=== PATIENT | male | born 2000 | race Caucasian/White ===

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

== ENCOUNTER 2021-02-06 10:43 | Emergency (ER) | payer OTHER ==
[~2021-02-06] VITALS: Ht 177.8 cm; Wt 65.9 kg
--- NOTE | 2021-02-06 12:17 | REP ---
INDICATION: pain in calf, r/o clot COMPARISON: 04/11/2020 TECHNIQUE: [place] scale and color Doppler evaluation using linear high frequency transducer. FINDINGS: Ultrasound examination of the right lower extremity deep venous structures from the common femoral vein through the calf/ankle to include the peroneal, and tibial veins demonstrates normal compressibility flow and wave patterns in response to respiration and augmentation. There is no evidence for deep venous thrombosis. Contralateral CFV is patent and normal. IMPRESSION: No evidence for deep venous thrombosis. <Electronically signed by Oswald Stovall > 02/06/21 [id number]
[2021-02-06 12:53] LABS: CK-MB VALUE MASS < 1.0 NG/ML (<3.6); CPK CREATINE PHOSPHOKINASE 321 U/L (39-308); MAGNESIUM LEVEL 2.1 MG/DL (1.4-2.0); MB/CK RELATIVE INDEX 0.31 (< OR =4)
[2021-02-06 13:10] VITALS: BP 123/63
== END 2021-02-06 13:19 | disposition home or self-care (01) ==
LOC: M ED 10:43
DX: M62.838 Other muscle spasm (principal)

== ENCOUNTER 2022-01-13 21:08 | Emergency (ER) | payer OTHER ==
[~2022-01-13] VITALS: Ht 177.8 cm; Wt 65.9 kg
[2022-01-14 05:23] VITALS: BP 122/59
== END 2022-01-14 05:26 | disposition left against medical advice (07) ==
LOC: M ED 21:08
DX: Z53.21 Procedure and treatment not carried out due to patient leaving prior to being seen by health care provider (principal)

== ENCOUNTER 2022-03-16 19:56 | Inpatient (IN) | payer OTHER ==
[~2022-03-16] VITALS: Ht 170.2 cm; Wt 65.9 kg
[2022-03-16 20:35] LABS: BASO # 0.1 10^3/uL (0.0-0.2); BASO % 0.7 % (0.0-1.0); HEMATOCRIT 45.4 % (42.0-52.0); HEMOGLOBIN 15.2 g/dl (13.5-17.5); LYMPH # 1.4 10^3/uL (1.5-5.0); MEAN CORPUSCULAR HEMOGLOBIN 29.6 pg (27.0-33.0); MEAN CORPUSCULAR HGB CONC 33.5 g/dl (32.0-36.5); MEAN CORPUSCULAR VOLUME 88.5 fl (80.0-96.0); MONO % 5.6 % (2.0-8.0); NEUTROPHILS # 13.8 10^3/uL (1.5-8.5); NEUTROPHILS % 81.6 % (36.0-66.0); PLATELET COUNT, AUTOMATED 232 10^3/uL (150-450); RED BLOOD COUNT 5.13 10^6/uL (4.30-6.10); WHITE BLOOD COUNT 16.9 10^3/uL (4.0-10.0)
[2022-03-16 20:52] LABS: OSMOLALITY SERUM 289 MOSM/KG (275-295)
[2022-03-16] MEDS ORDERED: NS 2,050 ML in IV 1 EA IV ONE (21:15)
[2022-03-16 21:16] LABS: ACETAMINOPHEN LEVEL < 2.0 UG/ML (10.0-30.0); ALBUMIN 4.2 GM/DL (3.2-5.2); ALT/SGPT 15 U/L (12-78); BILIRUBIN,DIRECT < 0.1 MG/DL (0.0-0.2); BILIRUBIN,TOTAL 0.3 MG/DL (0.2-1.0); BLOOD UREA NITROGEN 19 MG/DL (7-18); CALCIUM LEVEL 8.9 MG/DL (8.5-10.1); CARBON DIOXIDE LEVEL 26 MEQ/L (21-32); CHLORIDE LEVEL 104 MEQ/L (98-107); CREATININE FOR GFR 0.94 MG/DL (0.70-1.30); ETHYL ALCOHOL (ETHANOL) < 0.003 % (0.000-0.010); GLUCOSE, FASTING 115 MG/DL (70-100); POTASSIUM SERUM 4.5 MEQ/L (3.5-5.1); SALICYLATE LEVEL < 1.7 MG/DL (5.0-30.0); SODIUM LEVEL 138 MEQ/L (136-145); THYROID STIMULATING HORMONE 0.623 uIU/ML (0.463-3.98); TOTAL PROTEIN 7.1 GM/DL (6.4-8.2)
[2022-03-16 21:17] LABS: AMPHETAMINES LEVEL URINE NEGATIVE (NEGATIVE); BARBITURATES URINE NEGATIVE (NEGATIVE); BENZODIAZEPINES URINE NEGATIVE (NEGATIVE); CANNABINOIDS URINE NEGATIVE (NEGATIVE); COCAINE METABOLITE URINE NEGATIVE (NEGATIVE); METHADONE URINE NEGATIVE (NEGATIVE); OPIATES URINE NEGATIVE (NEGATIVE); PHENCYCLIDINE URINE NEGATIVE (NEGATIVE)
[2022-03-16 21:21] LABS: RSV AMPLIFICATION NEGATIVE (NEGATIVE)
[2022-03-16] MEDS ORDERED: cefTRIAXone SOD 2 GM in D5W MINI-BAG PLUS 50 ML IV ONE (22:20)
[2022-03-16] MEDS ORDERED: dexameTHASONE 20MG/5ML VIAL (J1100 PER 1MG) IV ONE (22:20)
[2022-03-16] MEDS ORDERED: VANCOMYCIN HCL 1,000 MG, VIAL MATE ADAPTER 1 EACH in NS 250 ML IV SCH (22:20)
[2022-03-16] MEDS ORDERED: NS 1,000 ML IV SCH (22:30)
[2022-03-16] MEDS ORDERED: VANCOMYCIN HCL 750 MG, VIAL MATE ADAPTER 1 EACH in D5W 250 ML IV ONE ×6 (23:00)
[2022-03-16] MEDS ORDERED: diazePAM 10MG/2ML SYRINGE (J3360 PER 5MG) IV ONE ×2 (23:30→23:50)
[2022-03-17] VITALS (14 sets, daily range): BP systolic 95–144; BP diastolic 50–77
[2022-03-17] MEDS ORDERED: ACYCLOVIR IV ONE ×2
[2022-03-17] MEDS ORDERED: NS IV ONE ×2
[2022-03-17] MEDS ORDERED: levETIRAcetam INJection 1,000 MG in D5W 100 ML IV ONE (00:35)
[2022-03-17] MEDS ORDERED: NAPR500T6 PO (01:31)
[2022-03-17] MEDS ORDERED: AMOX500C PO (01:31)
[2022-03-17] MEDS ORDERED: HOME MED LIST COMPLETE! XX SCH (01:35)
[2022-03-17] MEDS: NS 1,000 ML IV SCH ×3 (05:43→21:35)
[2022-03-17] MEDS ORDERED: VANCOMYCIN HCL 1,000 MG, VIAL MATE ADAPTER 1 EACH in NS 250 ML IV SCH ×2 (06:00→22:00)
[2022-03-17 07:03] LABS: BASO # 0.1 10^3/uL (0.0-0.2); BASO % 0.4 % (0.0-1.0); HEMATOCRIT 42.3 % (42.0-52.0); HEMOGLOBIN 14.4 g/dl (13.5-17.5); LYMPH # 0.7 10^3/uL (1.5-5.0); LYMPH % 5.5 % (24.0-44.0); MEAN CORPUSCULAR HEMOGLOBIN 30.2 pg (27.0-33.0); MEAN CORPUSCULAR VOLUME 88.7 fl (80.0-96.0); MONO # 0.2 10^3/uL (0.0-0.8); MONO % 1.4 % (2.0-8.0); NEUTROPHILS # 11.8 10^3/uL (1.5-8.5); NEUTROPHILS % 91.2 % (36.0-66.0); PLATELET COUNT, AUTOMATED 216 10^3/uL (150-450); RED BLOOD COUNT 4.77 10^6/uL (4.30-6.10); WHITE BLOOD COUNT 12.9 10^3/uL (4.0-10.0)
[2022-03-17 07:24] LABS: BLOOD UREA NITROGEN 13 MG/DL (7-18); CALCIUM LEVEL 8.7 MG/DL (8.5-10.1); CARBON DIOXIDE LEVEL 25 MEQ/L (21-32); CHLORIDE LEVEL 108 MEQ/L (98-107); CREATININE FOR GFR 0.74 MG/DL (0.70-1.30); GLUCOSE, FASTING 137 MG/DL (70-100); POTASSIUM SERUM 4.3 MEQ/L (3.5-5.1); SODIUM LEVEL 143 MEQ/L (136-145)
[2022-03-17] MEDS: ENOXAPARIN 40MG/0.4ML SYRINGE (J1650 PER 10MG) SC SCH (10:17)
[2022-03-17] MEDS: NS IV SCH ×2 (10:17→17:19)
[2022-03-17] MEDS: ACYCLOVIR IV SCH ×2 (10:17→17:19)
[2022-03-17 11:42] LABS: OSMOLALITY SERUM 289 MOSM/KG (275-295)
[2022-03-17] MEDS ORDERED: dexmedeTOMidine 200 MCG in IV 1 EA IV ONE (15:15)
[2022-03-17] MEDS ORDERED: MIDAZOLAM 5MG/ML 1ML VIAL (J2250 PER 1MG) As Ordered ONE (15:25)
[2022-03-17] MEDS ORDERED: MIDAZOLAM 5MG/ML 1ML VIAL (J2250 PER 1MG) IV STA (15:31)
[2022-03-17] MEDS ORDERED: dexmedeTOMidine 200 MCG in IV 1 EA IV SCH ×2 (15:35→23:25)
[2022-03-17] MEDS ORDERED: DEXMEDETOMIDINE IV ONE (15:50)
[2022-03-17] MEDS: dexmedeTOMidine 200 MCG in IV 1 EA IV SCH ×2 (15:53→17:20)
[2022-03-17] MEDS ORDERED: ETOMIDATE INJ 20MG/10ML VIAL IV STA (15:58)
[2022-03-17] MEDS ORDERED: ROCURONIUM BROMIDE 50 MG/5 ML VIAL IV ONE (16:00)
[2022-03-17] MEDS ORDERED: MIDAZOLAM INJ 2MG/2ML VIAL (J2250 PER 1MG) IV STA (17:12)
[2022-03-17] MEDS ORDERED: PROHANCE 279.3MG/ML 15ML VIAL As Ordered ONE (17:13)
[2022-03-17] MEDS: cefTRIAXone SOD 2 GM in D5W MINI-BAG PLUS 50 ML IV SCH (17:19)
[2022-03-17 20:36] LABS: C REACTIVE PROTEIN QUANTITATIV 2.79 MG/DL (0.00-0.30)
[2022-03-17 21:45] LABS: HIV 1&2 SCREEN CENTAUR NEGATIVE (NEGATIVE)
[2022-03-17] MEDS ORDERED: cefTRIAXone SOD 2 GM in D5W MINI-BAG PLUS 50 ML IV SCH (22:00)
[2022-03-17 22:26] LABS: ERYTHROCYTE SEDIMENTATION RATE 6 mm/hr (0-15)
[2022-03-17] MEDS ORDERED: ETOMIDATE INJ 20MG/10ML VIAL ONE (22:48)
[2022-03-17] MEDS ORDERED: ROCURONIUM BROMIDE 50 MG/5 ML VIAL ONE (22:48)
[2022-03-17] MEDS ORDERED: OLANZapine INTRAMUSCULAR 10MG VIAL IM ONE (23:00)
[2022-03-17] MEDS: MIDAZOLAM INJ 2MG/2ML VIAL (J2250 PER 1MG) IV SCH ×2 (23:48→23:49)
[2022-03-18] VITALS (26 sets, daily range): BP systolic 110–143; BP diastolic 53–76
[2022-03-18] MEDS: DOXYCYCLINE HYCLATE 100 MG in D5W MINI-BAG PLUS 100 ML IV SCH ×3 (00:12→21:51)
[2022-03-18] MEDS ORDERED: MIDAZOLAM INJ 2MG/2ML VIAL (J2250 PER 1MG) IV STA (00:36)
[2022-03-18] MEDS ORDERED: MIDAZOLAM INJ 2MG/2ML VIAL (J2250 PER 1MG) IV PRN (00:45)
[2022-03-18] MEDS ORDERED: PROPOFOL 1,000 MG/100 ML VIAL As Ordered ONE (01:37)
[2022-03-18] MEDS: NS IV SCH ×3 (03:02→17:35)
[2022-03-18] MEDS: ACYCLOVIR IV SCH ×3 (03:02→17:35)
[2022-03-18] MEDS: propofoL 1,000 MG in IV 1 EA IV SCH ×5 (03:06→23:46)
[2022-03-18] MEDS: cefTRIAXone SOD 2 GM in D5W MINI-BAG PLUS 50 ML IV SCH ×2 (04:50→16:59)
[2022-03-18 06:32] LABS: BLOOD UREA NITROGEN 16 MG/DL (7-18); CARBON DIOXIDE LEVEL 26 MEQ/L (21-32); CHLORIDE LEVEL 110 MEQ/L (98-107); CREATININE FOR GFR 0.73 MG/DL (0.70-1.30); GLUCOSE, FASTING 121 MG/DL (70-100); SODIUM LEVEL 145 MEQ/L (136-145)
[2022-03-18] MEDS: MIDAZOLAM INJ 2MG/2ML VIAL (J2250 PER 1MG) IV PRN ×3 (07:44→18:33)
[2022-03-18 08:42] LABS: ABG BASE EXCESS 2.4 (-2.0-2.0); ABG HCO3 25.1 MEQ/L (22.0-26.0); ABG O2 SATURATION 99.4 % (95.0-99.0); ABG PARTIAL PRESSURE CO2 32.8 mmHg (35.0-45.0); ABG PARTIAL PRESSURE O2 265.1 mmHg (75.0-100.0); ABG STANDARD HCO3 26.7 MEQ/L (22.0-26.0); ABG TOTAL CO2 26.1 MEQ/L (22.0-29.0); ABG pH (ARTERIAL) 7.501 UNITS (7.350-7.450)
[2022-03-18] MEDS ORDERED: dexameTHASONE 20MG/5ML VIAL (J1100 PER 1MG) IV ONE (08:55)
[2022-03-18 09:23] LABS: HEMATOCRIT 38.9 % (42.0-52.0); HEMOGLOBIN 12.9 g/dl (13.5-17.5); MEAN CORPUSCULAR HEMOGLOBIN 29.7 pg (27.0-33.0); MEAN CORPUSCULAR HGB CONC 33.2 g/dl (32.0-36.5); MEAN CORPUSCULAR VOLUME 89.4 fl (80.0-96.0); PLATELET COUNT, AUTOMATED 196 10^3/uL (150-450); RED BLOOD COUNT 4.35 10^6/uL (4.30-6.10); WHITE BLOOD COUNT 9.6 10^3/uL (4.0-10.0)
[2022-03-18 09:34] LABS: ALBUMIN 3.5 GM/DL (3.2-5.2); ALT/SGPT 13 U/L (12-78); BILIRUBIN,TOTAL 0.4 MG/DL (0.2-1.0); BLOOD UREA NITROGEN 16 MG/DL (7-18); CALCIUM LEVEL 9.1 MG/DL (8.5-10.1); CARBON DIOXIDE LEVEL 25 MEQ/L (21-32); CHLORIDE LEVEL 110 MEQ/L (98-107); CREATININE FOR GFR 0.69 MG/DL (0.70-1.30); GLUCOSE, FASTING 118 MG/DL (70-100); SODIUM LEVEL 145 MEQ/L (136-145); TOTAL PROTEIN 6.3 GM/DL (6.4-8.2)
[2022-03-18] MEDS: fentaNYL CITRATE 1,000 MCG in NS 80 ML IV SCH (12:30)
[2022-03-18 15:21] LABS: APPEARANCE, CSF CLEAR (CLEAR); COLOR, CSF COLORLESS (COLORLESS); CSF TUBE# CELL CNT TUBE 3
[2022-03-18 15:36] LABS: CSF TUBE# GLU TUBE 1; CSF TUBE# TP TUBE 1; GLUCOSE CSF 66 MG/DL (40-75); TOTAL PROTEIN,CSF 63 MG/DL (15-45)
[2022-03-18] MEDS: ENOXAPARIN 40MG/0.4ML SYRINGE (J1650 PER 10MG) SC SCH (15:45)
[2022-03-18] MEDS: PANTOPRAZOLE 40MG VIAL IV SCH (15:45)
[2022-03-18 19:13] LABS: CSF TUBE# LDH TUBE 2; LDH CSF 22 U/L
[2022-03-19] VITALS (24 sets, daily range): BP systolic 103–129; BP diastolic 51–64
[2022-03-19] MEDS: MIDAZOLAM INJ 2MG/2ML VIAL (J2250 PER 1MG) IV PRN ×9 (02:26→21:40)
[2022-03-19] MEDS: propofoL 1,000 MG in IV 1 EA IV SCH ×6 (05:18→23:09)
[2022-03-19 05:30] LABS: HEMATOCRIT 39.9 % (42.0-52.0); HEMOGLOBIN 13.1 g/dl (13.5-17.5); MEAN CORPUSCULAR HEMOGLOBIN 30.1 pg (27.0-33.0); MEAN CORPUSCULAR HGB CONC 32.8 g/dl (32.0-36.5); MEAN CORPUSCULAR VOLUME 91.7 fl (80.0-96.0); PLATELET COUNT, AUTOMATED 203 10^3/uL (150-450); RED BLOOD COUNT 4.35 10^6/uL (4.30-6.10); WHITE BLOOD COUNT 11.6 10^3/uL (4.0-10.0)
[2022-03-19 05:51] LABS: ABG BASE EXCESS 2.3 (-2.0-2.0); ABG HCO3 27.5 MEQ/L (22.0-26.0); ABG O2 SATURATION 98.7 % (95.0-99.0); ABG PARTIAL PRESSURE CO2 44.9 mmHg (35.0-45.0); ABG PARTIAL PRESSURE O2 137.2 mmHg (75.0-100.0); ABG STANDARD HCO3 26.5 MEQ/L (22.0-26.0); ABG TOTAL CO2 28.9 MEQ/L (22.0-29.0); ABG pH (ARTERIAL) 7.405 UNITS (7.350-7.450)
[2022-03-19 06:02] LABS: ALBUMIN 3.4 GM/DL (3.2-5.2); ALT/SGPT 14 U/L (12-78); BILIRUBIN,TOTAL 0.3 MG/DL (0.2-1.0); BLOOD UREA NITROGEN 19 MG/DL (7-18); CALCIUM LEVEL 8.9 MG/DL (8.5-10.1); CARBON DIOXIDE LEVEL 30 MEQ/L (21-32); CHLORIDE LEVEL 107 MEQ/L (98-107); CREATININE FOR GFR 0.78 MG/DL (0.70-1.30); GLUCOSE, FASTING 119 MG/DL (70-100); POTASSIUM SERUM 3.9 MEQ/L (3.5-5.1); SODIUM LEVEL 142 MEQ/L (136-145); TOTAL PROTEIN 6.8 GM/DL (6.4-8.2)
[2022-03-19] MEDS: ENOXAPARIN 40MG/0.4ML SYRINGE (J1650 PER 10MG) SC SCH (10:16)
[2022-03-19] MEDS: DOXYCYCLINE HYCLATE 100 MG in D5W MINI-BAG PLUS 100 ML IV SCH ×2 (10:16→22:00)
[2022-03-19] MEDS ORDERED: dexameTHASONE 20MG/5ML VIAL (J1100 PER 1MG) IV ONE (11:35)
[2022-03-19] MEDS: PANTOPRAZOLE 40MG VIAL IV SCH (11:48)
[2022-03-19] MEDS ORDERED: MIDAZOLAM INJ 2MG/2ML VIAL (J2250 PER 1MG) IV STA (12:22)
[2022-03-19] MEDS: fentaNYL CITRATE 1,000 MCG in NS 80 ML IV SCH (17:22)
[2022-03-19] MEDS ORDERED: REFRIGERATOR IV KEYS XX PRN (22:05)
[2022-03-19] MEDS ORDERED: MIDAZOLAM HCL 100 MG in D5W 80 ML IV SCH (23:00)
[2022-03-20] VITALS (12 sets, daily range): BP systolic 110–152; BP diastolic 53–79
[2022-03-20] MEDS: propofoL 1,000 MG in IV 1 EA IV SCH ×3 (02:21→08:49)
[2022-03-20 05:58] LABS: ABG BASE EXCESS 1.2 (-2.0-2.0); ABG HCO3 26.3 MEQ/L (22.0-26.0); ABG O2 SATURATION 97.7 % (95.0-99.0); ABG PARTIAL PRESSURE CO2 43.7 mmHg (35.0-45.0); ABG PARTIAL PRESSURE O2 103.3 mmHg (75.0-100.0); ABG STANDARD HCO3 25.6 MEQ/L (22.0-26.0); ABG TOTAL CO2 27.7 MEQ/L (22.0-29.0); ABG pH (ARTERIAL) 7.398 UNITS (7.350-7.450)
[2022-03-20 06:41] LABS: HEMATOCRIT 38.6 % (42.0-52.0); HEMOGLOBIN 12.8 g/dl (13.5-17.5); MEAN CORPUSCULAR HEMOGLOBIN 29.8 pg (27.0-33.0); MEAN CORPUSCULAR HGB CONC 33.2 g/dl (32.0-36.5); PLATELET COUNT, AUTOMATED 204 10^3/uL (150-450); RED BLOOD COUNT 4.29 10^6/uL (4.30-6.10); WHITE BLOOD COUNT 10.8 10^3/uL (4.0-10.0)
[2022-03-20 07:10] LABS: ALBUMIN 3.2 GM/DL (3.2-5.2); ALT/SGPT 17 U/L (12-78); BILIRUBIN,TOTAL 0.2 MG/DL (0.2-1.0); BLOOD UREA NITROGEN 15 MG/DL (7-18); CALCIUM LEVEL 8.7 MG/DL (8.5-10.1); CARBON DIOXIDE LEVEL 31 MEQ/L (21-32); CHLORIDE LEVEL 106 MEQ/L (98-107); CREATININE FOR GFR 0.74 MG/DL (0.70-1.30); GLUCOSE, FASTING 115 MG/DL (70-100); POTASSIUM SERUM 4.1 MEQ/L (3.5-5.1); SODIUM LEVEL 142 MEQ/L (136-145); TOTAL PROTEIN 6.6 GM/DL (6.4-8.2)
[2022-03-20] MEDS ORDERED: dexameTHASONE 20MG/5ML VIAL (J1100 PER 1MG) IV ONE (09:30)
[2022-03-20] MEDS: DOXYCYCLINE HYCLATE 100 MG in D5W MINI-BAG PLUS 100 ML IV SCH ×3 (09:34→22:04)
[2022-03-20] MEDS: ENOXAPARIN 40MG/0.4ML SYRINGE (J1650 PER 10MG) SC SCH (09:34)
[2022-03-20] MEDS: PANTOPRAZOLE 40MG VIAL IV SCH (13:43)
[2022-03-20] MEDS: DOXYCYCLINE HYCLATE 100MG TABLET PO SCH (21:00)
[2022-03-20] MEDS ORDERED: OLANZapine INTRAMUSCULAR 10MG VIAL IM PRN (23:45)
[2022-03-21] MEDS: DOXYCYCLINE HYCLATE 100MG TABLET PO SCH ×2 (00:09→08:54)
[2022-03-21 06:31] VITALS: BP 129/73
[2022-03-21 08:00] VITALS: BP 128/65
[2022-03-21] MEDS: ENOXAPARIN 40MG/0.4ML SYRINGE (J1650 PER 10MG) SC SCH (08:54)
[2022-03-21] MEDS ORDERED: dexameTHASONE 20MG/5ML VIAL (J1100 PER 1MG) IV ONE (09:00)
[2022-03-21] MEDS ORDERED: PANTOPRAZOLE 40MG TAB (PROTONIX) PO SCH (09:00)
[2022-03-21] MEDS ORDERED: PRED10TA2 PO (18:42)
[2022-03-24 13:07] LABS: B. HENSELAE IgG (CAT SCRATCH) Negative titer (Neg:<1:320); B. HENSELAE IgM (CAT SCRATCH) Negative titer (Neg:<1:100); B. QUINTANA IgG (CAT SCRATCH) Negative titer (Neg:<1:320); B. QUINTANA IgM (CAT SCRATCH) Negative titer (Neg:<1:100)
== END 2022-03-21 11:00 | disposition left against medical advice (07) | DRG 50 ==
LOC: M ED 19:56 → M ED INP 03-17 01:52 → M ICU 03-17 05:23 → M 4MAIN 03-20 13:54
PROVIDERS: ADMIT Internal Medicine; ATTEND Internal Medicine
PROC: 0BH17EZ Insertion of Endotracheal Airway into Trachea, Via Natural or Artificial Opening (ICD-10-PCS; principal; 2022-03-18)
PROC: 009U3ZX Drainage of Spinal Canal, Percutaneous Approach, Diagnostic (ICD-10-PCS; 2022-03-18)
DX: A86 Unspecified viral encephalitis (principal); R40.20 Unspecified coma; E87.3 Alkalosis; D72.829 Elevated white blood cell count, unspecified; R45.1 Restlessness and agitation

== ENCOUNTER 2022-03-21 14:23 | Emergency (ER) | payer OTHER ==
[~2022-03-21] VITALS: Ht 177.8 cm; Wt 65.3 kg
[~2022-03-21 14:23] MED LIST changes: +AMOX500C PO; +NAPR500T6 PO
[2022-03-21] MEDS ORDERED: predniSONE 20 MG TAB PO ONE (18:30)
[2022-03-21] MEDS ORDERED: PRED10TA2 PO (18:42)
[2022-03-21 19:06] VITALS: BP 143/72
== END 2022-03-21 19:12 | disposition home or self-care (01) ==
LOC: M ED 14:23
DX: Z76.0 Encounter for issue of repeat prescription (principal); Z79.899 Other long term (current) drug therapy
CPT/HCPCS: 99283; J7512